=== PATIENT | male | born 1935 | race Caucasian/White ===

== ENCOUNTER 2017-01-19 08:48 | Day surgery (SDC) | payer MEDICARE ==
--- NOTE | ~2017-01-19 | EGD ---
EGD REPORT [facility] [place] [address] [address] NAME: LEEAL HAYNES : [birth year] STATUS : REG [facility] [place] PAT#: [id number] AGE: 81 ADM/REG DATE : 01/19/17 MR#: [id number] REPORT SERV DATE: 01/19/17 DICTATED BY: DATE: REPORT STATUS : Draft TRANSCRIBED BY: [employer] DATE: 01/19/17 Endoscopy Center Patient Name: Leela Haynes Date of : 1935 Attending MD: EVANS CARLIN MD Procedure Date No Time: 01/19/2017 Procedure: Colonoscopy Indications: Diarrhea, Last colonoscopy: 2006 Referring MD: MARY NUNEZ MD Medicines: See the Anesthesia note for documentation of the administered medications Complications: No immediate complications. Procedure: Pre-Anesthesia Assessment: - ASA Grade Assessment: II - A patient with mild systemic disease. After I obtained informed consent, the scope was passed under direct vision. Throughout the procedure, the patient's blood pressure, pulse, and oxygen saturations were monitored continuously. The PCF [id number] was introduced through the anus and advanced to the terminal ileum, with identification of the appendiceal orifice and IC valve. The colonoscopy was performed without difficulty. The patient tolerated the procedure well. The quality of the bowel preparation was adequate. Findings: The perianal and digital rectal examinations were normal. Diverticula were found in the sigmoid colon. Internal hemorrhoids were found during retroflexion and were medium-sized. Normal mucosa was found in the ascending colon. Biopsies were taken with a cold forceps for histology. Normal mucosa was found in the rectum. Biopsies were taken with a cold forceps for histology. Impression: - Diverticulosis in the sigmoid colon. - Internal hemorrhoids. - Normal mucosa in the ascending colon. Biopsied. - Normal mucosa in the rectum. Biopsied. Recommendation: - Patient has a contact number available for emergencies. The signs and symptoms of potential delayed complications were discussed with the patient. Return to normal activities tomorrow. Written discharge instructions were provided to the patient. EGD REPORT [address] [address] NAME: LEELA HAYNES : [birth year] STATUS : REG [facility]#: [id number] AGE: 81 ADM/REG DATE : 01/19/17 MR#: [id number] REPORT SERV DATE: 01/19/17 DICTATED BY: DATE: REPORT STATUS : Draft TRANSCRIBED BY: [employer] DATE: 01/19/17 - Regular diet. - Continue present medications. - Repeat colonoscopy is not recommended for screening purposes. - FOR YOUR BIOPSY RESULTS: Please go to [email or web address] and register to receive your results via the portal. Your biopsy results will be posted there in about 7 to 10 days. IF you do not see result in 10 days, call office. - Follow up with my nurse practitioner in 4 weeks Procedure Code(s): --- Professional --- 38641, Colonoscopy, flexible, proximal to splenic flexure; with biopsy, single or multiple Diagnosis Code(s): --- Professional --- K64.8, Other hemorrhoids K57.30, Diverticulosis of large intestine without perforation or abscess without bleeding R19.7, Diarrhea, unspecified CPT copyright 2013 [employer]. All rights reserved. The codes documented in this report are preliminary and upon electrical engineering director review may be revised to meet current compliance requirements. Evans Carlin MD EVANS CARLIN MD 01/19/2017 10:14 AM This report has been signed electronically. Number of Addenda: 0 Note Initiated On: 01/19/2017 9:47 AM Scope Withdrawal Time 0 hours 7 minutes 37 seconds [id number] [id number]
--- NOTE | ~2017-01-19 | EGD ---
EGD REPORT [facility] [address] [address] NAME: LEELA HAYNES : 37 STATUS : REG [facility] [place] PAT#: [id number] AGE: 81 ADM/REG DATE : 01/19/17 MR#: [id number] REPORT SERV DATE: 01/19/17 DICTATED BY: EVANS CARLIN DATE: 01/19/17 REPORT STATUS : Draft [facility]: [facility] DATE: 01/19/17 Endoscopy Center Patient Name: Leela Haynes Date of : 1935 Attending MD: EVANS CARLIN MD Procedure Date No Time: 01/19/2017 Procedure: Upper GI endoscopy Indications: Iron deficiency anemia, Gastro-esophageal reflux disease Referring MD: MARY NUNEZ MD Medicines: See the Anesthesia note for documentation of the administered medications Complications: No immediate complications. Procedure: Pre-Anesthesia Assessment: - ASA Grade Assessment: II - A patient with mild systemic disease. After obtaining informed consent, the endoscope was passed under direct vision. Throughout the procedure, the patient's blood pressure, pulse, and oxygen saturations were monitored continuously. The GIF H190 [id number] was introduced through the mouth, and advanced to the second part of duodenum. The upper GI endoscopy was accomplished without difficulty. The patient tolerated the procedure well. Findings: The 2nd part of the duodenum was normal. Biopsies were taken with a cold forceps for histology. The entire examined stomach was normal. The cardia and gastric fundus were normal on retroflexion. A small hiatus hernia was present. Impression: - Normal 2nd part of the duodenum. Biopsied. - Normal stomach. - Hiatus hernia. Recommendation: - Patient has a contact number available for emergencies. The signs and symptoms of potential delayed complications were discussed with the patient. Return to normal activities tomorrow. Written discharge instructions were provided to the patient. - Regular diet. - Continue present medications. - FOR YOUR BIOPSY RESULTS: Please go to [email or web address] and register to receive your results via the portal. Your biopsy results will be EGD REPORT [address] [address] NAME: LEELA HAYNES : [birth year] STATUS : REG [facility] [place] PAT#: [id number] AGE: 81 ADM/REG DATE : 01/19/17 MR#: [id number] REPORT SERV DATE: 01/19/17 DICTATED BY: EVANS CARLIN DATE: 01/19/17 REPORT STATUS : Draft TRANSCRIBED BY: [employer] DATE: 01/19/17 posted there in about 7 to 10 days. IF you do not see result in 10 days, call office. Procedure Code(s): --- Professional --- 27091, Esophagogastroduodenoscopy, flexible, transoral; with biopsy, single or multiple Diagnosis Code(s): --- Professional --- K44.9, Diaphragmatic hernia without obstruction or gangrene D50.9, Iron deficiency anemia, unspecified K21.9, Gastro-esophageal reflux disease without esophagitis CPT copyright 2013 [employer]. All rights reserved. The codes documented in this report are preliminary and upon french binding folder review may be revised to meet current compliance requirements. Evans Carlin MD EVANS CARLIN MD 01/19/2017 10:00 AM This report has been signed electronically. Number of Addenda: 0 Note Initiated On: 01/19/2017 9:49 AM Scope Withdrawal Time 0 hours 0 minutes 0 seconds [id number] [place] [address] [id number]
[~2017-01-19 08:48] MED LIST: ASAB PO; COSOPT OPH; PRESERVISION A1 EAC1 PO; PRILO PO
== END 2017-01-19 23:59 | disposition home or self-care (01) ==
LOC: DMU 08:48
PROVIDERS: Internal Medicine Gastroenterology
PROC: 0DB98ZX Excision of Duodenum, Via Natural or Artificial Opening Endoscopic, Diagnostic (ICD-10-PCS; 2017-01-19)
PROC: 0DBK8ZX Excision of Ascending Colon, Via Natural or Artificial Opening Endoscopic, Diagnostic (ICD-10-PCS; principal; 2017-01-19 10:30)
PROC: 0DBP8ZX Excision of Rectum, Via Natural or Artificial Opening Endoscopic, Diagnostic (ICD-10-PCS; 2017-01-19 10:30)
DX: K64.8 Other hemorrhoids (principal); K57.30 Diverticulosis of large intestine without perforation or abscess without bleeding; K44.9 Diaphragmatic hernia without obstruction or gangrene; D50.9 Iron deficiency anemia, unspecified; K21.9 Gastro-esophageal reflux disease without esophagitis; G47.33 Obstructive sleep apnea (adult) (pediatric); Z88.0 Allergy status to penicillin; Z98.890 Other specified postprocedural states
CPT/HCPCS: 88305